=== PATIENT | female | born 1970 | race Hispanic/Latino ===

== ENCOUNTER 2017-09-12 17:28 | Emergency (ER) | payer MEDICARE ==
[2017-09-12 17:29] VITALS: BMI 21.7
[2017-09-12 17:37] VITALS: BP 133/76; PULSE 83; RESP 16; TEMP 98; O2SAT 98
[2017-09-12] MEDS ORDERED: Tmp-Smz 800 mg-160 mg DS Tab PO STA (17:52)
--- NOTE | 2017-09-12 17:54 | C.PDOC ---
History Of Present Illness 46 yo female come in for evaluation of left inner leg painful mass gradually developed for past week. Pt admits, noted some draining fro past few days from mass. Admits, similar sx in past to different part of body. Otherwise, pt denies fever, chills, known trauma or injury, abd. pain, N/V/D, UTI sx, vaginal irritation o discharge. Ambulate to Ed for evaluation, not in any apparent distress. Time Seen by Provider: 09/12/17 17:34 Chief Complaint (Nursing): Abnormal Skin Integrity History Per: Patient Onset/Duration Of Symptoms: Gradual Past Medical History Reviewed: Historical Data, Nursing Documentation, Vital Signs Vital Signs: Last Vital Signs Temp 98 F 09/12/17 17:35 Pulse 83 09/12/17 17:35 Resp 16 09/12/17 17:35 BP 133/76 09/12/17 17:35 Pulse Ox 98 09/12/17 18:00 Family History: States: Unknown Family Hx - Social History Hx Tobacco Use: Yes Hx Alcohol Use: No Hx Substance Use: No - Immunization History Hx Tetanus Toxoid Vaccination: No Hx Influenza Vaccination: No Hx Pneumococcal Vaccination: No Review Of Systems Except As Marked, All Systems Reviewed And Found Negative. Constitutional: Negative for: Fever, Chills ENT: Negative for: Throat Pain Cardiovascular: Negative for: Chest Pain Respiratory: Negative for: Cough, Shortness of Breath Gastrointestinal: Negative for: Nausea, Vomiting, Abdominal Pain, Diarrhea Genitourinary: Negative for: Dysuria, Frequency, Incontinence, Vaginal Discharge , Vaginal Bleeding Musculoskeletal: Negative for: Neck Pain, Back Pain Skin: Positive for: Lesions Neurological: Negative for: Weakness, Numbness Physical Exam - Physical Exam Appears: Well, Non-toxic, No Acute Distress Skin: Normal Color, Warm, No Rash, Other (1cm induration noted to left groin area with suprficial abrasion, mild erythema. NO flactulance, no proximal streaking.) Head: Normacephalic Eye(s): bilateral: PERRL Gastrointestinal/Abdominal: Soft, No Tenderness, No Distention, No Guarding Back: No CVA Tenderness Pelvic: Normal External Exam Extremity: Normal ROM, No Deformity, No Swelling Neurological/Psych: Oriented x3, Normal Speech, Normal Motor, Normal Sensation, Normal Reflexes ED Course And Treatment O2 Sat by Pulse Oximetry: 98 Pulse Ox Interpretation: Normal Progress Note: On re-eavl, pt david febrile, hemodynamicaly stable. NOn-toxic. Abd: benign, (-) guarding, (-) rebound. back: (-) CVA tenderness. Pelvis exam : normal external exam, small induration Left groin area. NO flactulance, no proximal streaking. Pt advised on wound care. ref. to f/u with PMD, in 2-3 days for re-eval. return to ED if any worsening or new changes. Disposition Counseled Patient/Family Regarding: Diagnosis, Need For Followup, Rx Given - Disposition Referrals: [facility] [Outside] Disposition: HOME/ ROUTINE Disposition Time: 17:58 Condition: STABLE Additional Instructions: Warm salty water compresses twice daily for 5 minutes Take medication as prescribed Follow up with PMD in 2-3 days for re-evaluation. Return to ED if any worsening or new changes. Prescriptions: Sulfamethoxazole/Trimethoprim [Bactrim DS 800 mg-160 mg] 1 tab PO BID #14 tab Instructions: Folliculitis (DC) Forms: [email or web address] (Turkmen) - Clinical Impression Clinical Impression: Folliculitis
[2017-09-12] MEDS ORDERED: Tmp-Smz 800 mg-160 mg DS Tab ONE (18:05)
== END 2017-09-12 18:05 | disposition home or self-care (01) ==
LOC: C.ER 17:28
DX: L73.9 Follicular disorder, unspecified (principal)